=== PATIENT | female | born 1990 | race Caucasian/White ===

== ENCOUNTER 2021-10-23 08:59 | Emergency (ER) | payer OTHER ==
[~2021-10-23] VITALS: Ht 170.2 cm; Wt 136.9 kg
[2021-10-23 09:33] LABS: BASOPHILS % (AUTO) 0.5 % (0-1); EOSINOPHILS % (AUTO) 0.4 % (0-6); HEMATOCRIT 38.4 % (35.0-45.0); HEMOGLOBIN 12.8 g/dl (12.0-16.0); LYMPHOCYTES # (AUTO) 1.4 X10'3 (1.1-4.8); LYMPHOCYTES % (AUTO) 17.5 % (21-51); MEAN CORPUSCULAR HEMOGLOBIN 29.2 PG (27.0-31.0); MEAN CORPUSCULAR HGB CONC 33.3 g/dL (33.0-36.5); MEAN CORPUSCULAR VOLUME 87.7 FL (78-98); MEAN PLATELET VOLUME 7.9 FL (7.4-10.4); MONOCYTES # (AUTO) 0.5 X10'3 (0-0.9); MONOCYTES % (AUTO) 5.6 % (2-12); NEUTROPHILS # (AUTO) 6.1 X10'3 (1.8-7.7); PLATELET COUNT 287 X10'3 (140-440); RED BLOOD COUNT 4.38 X10'6 (4.20-5.60); RED CELL DISTRIBUTION WIDTH 12.9 % (11.5-14.5)
[2021-10-23 09:48] LABS: CHLORIDE 106 MMOL/L (99-107); GLUCOSE 111 MG/DL (70-104); POTASSIUM 3.5 MMOL/L (3.5-5.1); SODIUM 143 MMOL/L (135-145); TOTAL CARBON DIOXIDE 26.3 MMOL/L (24-32)
[2021-10-23 09:49] LABS: ALANINE AMINOTRANSFERASE 22 U/L (12-78); ALBUMIN 4.2 G/DL (3.4-5.0); ALBUMIN/GLOBULIN RATIO 1.2 (1.1-1.5); ALKALINE PHOSPHATASE 65 IU/L (46-116); ANION GAP 11 (8-16); ASPARTATE AMINO TRANSFERASE 14 U/L (10-37); BILIRUBIN,TOTAL 0.8 MG/DL (0.1-1.0); BLOOD UREA NITROGEN 8 MG/DL (7-18); BUN/CREATININE RATIO 15.4 (6.6-38.0); CALCIUM 8.6 MG/DL (8.5-10.1); CREATININE 0.52 MG/DL (0.40-0.90); TOTAL PROTEIN 7.7 G/DL (6.4-8.2); eGFR > 90 ML/MIN
[2021-10-23 09:57] LABS: ETHANOL < 0.010 GM/DL (0.0-0.010)
[2021-10-23] MEDS ORDERED: OLANZapine 5mg rapidly disint. tablet PO ONE (10:10)
[2021-10-23 10:48] LABS: URINE AMPHETAMINE SCREEN NEGATIVE (Neg); URINE BARBITUATE SCREEN NEGATIVE (Neg); URINE BENZODIAZEPINES SCREEN NEGATIVE (Neg); URINE CANNABINOID SCREEN NEGATIVE (Neg); URINE COCAINE SCREEN NEGATIVE (Neg); URINE METHADONE SCREEN NEGATIVE (Neg); URINE OPIATE SCREEN NEGATIVE (Neg); URINE PHENCYCLIDINE SCREEN NEGATIVE (Neg)
[2021-10-23 10:49] LABS: CLARITY,URINE CLOUDY (Clear); COLOR,URINE YELLOW (Yellow); GLUCOSE, URINE NEGATIVE (Neg); KETONES,URINE NEGATIVE (Neg); LEUKOCYTE ESTERASE ,URINE NEGATIVE (Neg); NITRITES, URINE NEGATIVE (Neg); OCCULT BLOOD,URINE NEGATIVE (Neg); PH,URINE 6.5 (4.8-8.0); PROTEIN,URINE NEGATIVE (Neg); UROBILINOGEN,URINE 0.2 E.U/dL (0.2-1.0)
[2021-10-23 10:53] LABS: URINE HCG NEGATIVE (NEG)
[2021-10-23 11:00] LABS: UA COLLECTION TYPE NON-SPECIFIED
[2021-10-23 11:01] LABS: MUCUS STRANDS MODERATE /LPF (Neg); SQUAMOUS EPITHELIAL CELL,UR MANY /LPF (FEW)
[2021-10-23 11:02] LABS: BACTERIA,URINE 2+ /HPF (Neg); RBC,URINE 0-2 /HPF (0-2); WBC,URINE 0-4 /HPF (0-4)
[2021-10-23] MEDS ORDERED: LORazepam 1 MG tablet PO ONE (11:50)
--- NOTE | 2021-10-23 12:00 | NUR ---
Received patient to bed 24. accompanied by father. AAOx3. No acute distress at this time. Calm, cooperative. Denies SI/HI at this time. States that she was at home and started to feel anxious and depresse. "I started to freak out a little bit". States that she was saying "The devil had my soul". The patient states that she was admitted inpatient at [facility] for 10 days, and was released five days ago where she sees Dr. Gonzales. She was perscribed Aristada 883mg IM and Trazadone 50mg for sleep. The patient states that her meds are not working and she needs something else. Will continue to monitor and assist as needed.
--- NOTE | 2021-10-23 14:00 | NUR ---
Resting in bed. Voiced no complaints at this time. Flat affect. Able to make needs known. Will continue to observe and redirect as needed.
[2021-10-23] MEDS ORDERED: TRAZ-251 PO (15:30)
--- NOTE | 2021-10-23 16:00 | NUR ---
Talking on the phone with mom. No negative behaviors observed. Will continue to monitor and assist as needed.
[2021-10-23] MEDS ORDERED: ARIP882S2 IM (17:49)
--- NOTE | 2021-10-23 19:39 | NUR ---
PATIENT RECEIVED ON THE UNIT IN NO OBVIOUS DISTRESS. NO PHYSICAL COMPLAINT MADE. PATIENT IS BREATHING SPONTANOUSLY ON ROOM AIR. PATIENT DENIES HAVING ANY SUICIDAL/HOMICIDAL IDEATION OR HALLUCINATION NOTED AT THIS TIME.
[2021-10-23] MEDS ORDERED: traZODone 50mg tablet PO SCH (21:00)
--- NOTE | 2021-10-24 05:51 | NUR ---
Patient slept through out the night. No obvious distress noted. observation ongoing.
--- NOTE | 2021-10-24 06:30 | NUR ---
PT. CARE ASSUMED FROM SHANIA STORM. PT. AWAKE ON THE UNIT HAS BEEN UP AT NURSES STATION WITH SEVERAL REQUEST. PT. PROVIDED WITH COLORING MATERIALS AND CUP OF COFFEE REQUESTED. PT. PRESENTS CALM AND COOPERATIVE WITH STAFF. STAFF WILL CONTINUE TO MONITOR FOR SAFETY.
[2021-10-24] MEDS ORDERED: LORazepam 1 MG tablet PO ONE (09:30)
--- NOTE | 2021-10-24 10:58 | NUR ---
PT. VISIBLE ON THE UNIT. PT. REQUESTED TO USE TELEPHONE AT THIS TIME.
--- NOTE | 2021-10-24 12:13 | NUR ---
FATHER AT BEDSIDE VISITING.
--- NOTE | 2021-10-24 13:16 | NUR ---
NURSE TO NURSE WITH JAUN STORM FROM [facility]. JAUN WILL PRESENT PATIENT TO DOCTOR FOR POSSIBLE ADMISSION, WILL NOTIFY [facility] IF ACCEPTED.
--- NOTE | 2021-10-24 14:48 | NUR ---
PT. ACCE[facility] AT [facility] WITH A SCHEDULED PICK-UP TIME OF [id number].
--- NOTE | 2021-10-24 17:06 | NUR ---
PT. REMAINS CALM AND COOPERATIVE ON THE UNIT. MOM AT BEDSIDE AT THIS TIME. STAFF WILL CONTINUE TO MONITOR FOR SAFETY.
--- NOTE | 2021-10-24 19:13 | NUR ---
PATIENT RECEIVED ON THE UNIT IN NO OBVIOUS DISTRESS. NO PHYSICAL COMPLAINT MADE. PATIENT IS BREATHING SPONTANOUSLY ON ROOM AIR. SHE DENIES HAVING ANY SUICIDAL/HOMICIDAL IDEATION AT THIS TIME.
[2021-10-24 20:03] VITALS: BP 120/80
== END 2021-10-24 20:14 ==
LOC: ER 09:01
DX: R45.851 Suicidal ideations (principal); Z20.822 Contact with and (suspected) exposure to COVID-19
CPT/HCPCS: 36415; 80053; 80305; 80320; 81001; 81025; 84443; 85025; 87635; 99285; C9803

== ENCOUNTER 2021-11-26 11:07 | Emergency (ER) | payer MEDICAID ==
[~2021-11-26] VITALS: Ht 170.2 cm; Wt 60.9 kg
[~2021-11-26 11:07] MED LIST: ARIP882S2 IM; TRAZ-251 PO
[2021-11-26 11:46] LABS: URINE HCG NEGATIVE (NEG)
[2021-11-26 11:49] LABS: CLARITY,URINE CLEAR (Clear); COLOR,URINE YELLOW (Yellow); GLUCOSE, URINE NEGATIVE (Neg); KETONES,URINE NEGATIVE (Neg); LEUKOCYTE ESTERASE ,URINE NEGATIVE (Neg); NITRITES, URINE NEGATIVE (Neg); OCCULT BLOOD,URINE LARGE (Neg); PROTEIN,URINE NEGATIVE (Neg); UROBILINOGEN,URINE 0.2 E.U/dL (0.2-1.0)
[2021-11-26 11:51] LABS: UA COLLECTION TYPE CLN CATCH MIDSTREAM; URINE AMPHETAMINE SCREEN NEGATIVE (Neg); URINE BARBITUATE SCREEN NEGATIVE (Neg); URINE BENZODIAZEPINES SCREEN NEGATIVE (Neg); URINE CANNABINOID SCREEN NEGATIVE (Neg); URINE COCAINE SCREEN NEGATIVE (Neg); URINE METHADONE SCREEN NEGATIVE (Neg); URINE OPIATE SCREEN NEGATIVE (Neg); URINE PHENCYCLIDINE SCREEN NEGATIVE (Neg)
[2021-11-26 11:52] LABS: BASOPHILS # (AUTO) 0.1 X10'3 (0-0.2); BASOPHILS % (AUTO) 0.7 % (0-1); EOSINOPHILS % (AUTO) 0.4 % (0-6); HEMATOCRIT 37.5 % (35.0-45.0); HEMOGLOBIN 12.5 g/dl (12.0-16.0); LYMPHOCYTES # (AUTO) 0.8 X10'3 (1.1-4.8); MEAN CORPUSCULAR HEMOGLOBIN 29.3 PG (27.0-31.0); MEAN CORPUSCULAR HGB CONC 33.3 g/dL (33.0-36.5); MEAN CORPUSCULAR VOLUME 88.1 FL (78-98); MEAN PLATELET VOLUME 8.1 FL (7.4-10.4); MONOCYTES # (AUTO) 0.5 X10'3 (0-0.9); MONOCYTES % (AUTO) 6.4 % (2-12); NEUTROPHILS # (AUTO) 5.8 X10'3 (1.8-7.7); NEUTROPHILS % (AUTO) 81.5 % (42-75); PLATELET COUNT 240 X10'3 (140-440); RED BLOOD COUNT 4.26 X10'6 (4.20-5.60); RED CELL DISTRIBUTION WIDTH 12.9 % (11.5-14.5); WHITE BLOOD COUNT 7.1 X10'3 (4.5-11.0)
[2021-11-26 11:54] VITALS: BP 109/82
[2021-11-26 11:54] LABS: MUCUS STRANDS MANY /LPF (Neg); SQUAMOUS EPITHELIAL CELL,UR MANY /LPF (FEW)
[2021-11-26 11:55] LABS: HYALINE CASTS 0-3 /LPF (NEGATIVE)
[2021-11-26 11:56] LABS: BACTERIA,URINE FEW /HPF (Neg); WBC,URINE 0-4 /HPF (0-4)
[2021-11-26 12:05] LABS: ANION GAP 11 (8-16); BILIRUBIN,TOTAL 0.6 MG/DL (0.1-1.0); BLOOD UREA NITROGEN 9 MG/DL (7-18); BUN/CREATININE RATIO 12.9 (6.6-38.0); CALCIUM 8.6 MG/DL (8.5-10.1); CHLORIDE 103 MMOL/L (99-107); GLUCOSE 120 MG/DL (70-104); POTASSIUM 3.4 MMOL/L (3.5-5.1); SODIUM 140 MMOL/L (135-145); TOTAL CARBON DIOXIDE 25.7 MMOL/L (24-32); eGFR > 90 ML/MIN
[2021-11-26 12:06] LABS: ALANINE AMINOTRANSFERASE 13 U/L (12-78); ALBUMIN 4.4 G/DL (3.4-5.0); ALBUMIN/GLOBULIN RATIO 1.5 (1.1-1.5); ALKALINE PHOSPHATASE 63 IU/L (46-116); ASPARTATE AMINO TRANSFERASE 21 U/L (10-37); TOTAL PROTEIN 7.4 G/DL (6.4-8.2)
--- NOTE | 2021-11-26 12:15 | NUR ---
Patient asks when she can get medication for anxiety. Patient told ER Provider needs to assess her first.
[2021-11-26 12:17] LABS: ETHANOL < 0.010 GM/DL (0.0-0.010)
[2021-11-26] MEDS ORDERED: QUET25TA PO ×2 (12:25→16:46)
[2021-11-26] MEDS ORDERED: PRAZ5CAP PO (12:25)
[2021-11-26] MEDS ORDERED: RISP0.5T74 PO (12:25)
--- NOTE | 2021-11-26 12:30 | NUR ---
Patient resting quietly in room; sitting on bed.
--- NOTE | 2021-11-26 12:45 | NUR ---
Patient went to restroom and did not return to room; restrooms empty; security notified; [employer] notified.
--- NOTE | 2021-11-26 12:48 | NUR ---
PT NOTED TO NOT BE IN HER ROOM AFTER VISITING THE RESTROOM. PT'S BELONGS REMAIN ON A CART OUTSIDE OF RM14. ALL BATHROOMS CHECK, PT NOT FOUND. SARAH CALLED AND AND [employer] OFFICER CARYN CALLED TO NOTIFY HE WILL BEE LOOKING FOR PT.
--- NOTE | 2021-11-26 13:08 | NUR ---
Called patient's mother Sujata to let her know patient left ED; Sujata will call patient's sister toward whom patient has HI.
[2021-11-26] MEDS ORDERED: ARIP882S2 IM (16:09)
[2021-11-26] MEDS ORDERED: PRAZ2CAP2 PO (16:46)
[2021-11-26] MEDS ORDERED: TRAZ-256 PO (16:46)
[2021-11-26] MEDS ORDERED: RISP2TAB85 PO (16:46)
== END 2021-11-26 12:48 | disposition left against medical advice (07) ==
LOC: ER 11:08
DX: R45.850 Homicidal ideations (principal); Z20.822 Contact with and (suspected) exposure to COVID-19; Z53.21 Procedure and treatment not carried out due to patient leaving prior to being seen by health care provider
CPT/HCPCS: 36415; 80053; 80305; 80320; 81001; 81025; 84443; 85025; 87635; C9803

== ENCOUNTER 2021-11-26 14:46 | Emergency (ER) | payer MEDICAID ==
[~2021-11-26] VITALS: Ht 170.2 cm; Wt 60.9 kg
[~2021-11-26 14:46] MED LIST changes: +PRAZ5CAP PO; +QUET25TA PO; +RISP0.5T74 PO
[2021-11-26 15:51] LABS: BASOPHILS % (AUTO) 0.6 % (0-1); EOSINOPHILS % (AUTO) 0.5 % (0-6); HEMATOCRIT 37.4 % (35.0-45.0); HEMOGLOBIN 12.5 g/dl (12.0-16.0); LYMPHOCYTES % (AUTO) 13.9 % (21-51); MEAN CORPUSCULAR HEMOGLOBIN 29.4 PG (27.0-31.0); MEAN CORPUSCULAR HGB CONC 33.4 g/dL (33.0-36.5); MEAN CORPUSCULAR VOLUME 88.3 FL (78-98); MEAN PLATELET VOLUME 8.2 FL (7.4-10.4); MONOCYTES # (AUTO) 0.4 X10'3 (0-0.9); MONOCYTES % (AUTO) 6.4 % (2-12); NEUTROPHILS # (AUTO) 5.5 X10'3 (1.8-7.7); NEUTROPHILS % (AUTO) 78.6 % (42-75); PLATELET COUNT 249 X10'3 (140-440); RED BLOOD COUNT 4.23 X10'6 (4.20-5.60)
--- NOTE | 2021-11-26 15:58 | NUR ---
Per [facility], patient received her injection of Aristada 882/3 mg today. She is getting this medication Q 2 months.
[2021-11-26 15:59] LABS: ALANINE AMINOTRANSFERASE 11 U/L (12-78); ALBUMIN 4.5 G/DL (3.4-5.0); ALBUMIN/GLOBULIN RATIO 1.5 (1.1-1.5); ALKALINE PHOSPHATASE 65 IU/L (46-116); ANION GAP 5 (8-16); ASPARTATE AMINO TRANSFERASE 10 U/L (10-37); BILIRUBIN,TOTAL 0.7 MG/DL (0.1-1.0); BLOOD UREA NITROGEN 8 MG/DL (7-18); BUN/CREATININE RATIO 10.7 (6.6-38.0); CALCIUM 8.8 MG/DL (8.5-10.1); CHLORIDE 103 MMOL/L (99-107); CREATININE 0.75 MG/DL (0.40-0.90); ETHANOL < 0.010 GM/DL (0.0-0.010); GLUCOSE 102 MG/DL (70-104); POTASSIUM 3.8 MMOL/L (3.5-5.1); SODIUM 135 MMOL/L (135-145); TOTAL CARBON DIOXIDE 27.5 MMOL/L (24-32); TOTAL PROTEIN 7.5 G/DL (6.4-8.2); eGFR 90 ML/MIN
[2021-11-26] MEDS ORDERED: ARIP882S2 IM (16:09)
[2021-11-26] MEDS ORDERED: nicotine 14mg patch - 24hr TD ONE (16:20)
--- NOTE | 2021-11-26 16:30 | NUR ---
RECEIVED VO FROM Nan PINA NP FOR ATARAX 50MG PO Q6 HOURS PRN ANXIETY AGGITATION AND NICOTINE PATCH 14MG X 1 PT REQUESTING.
[2021-11-26] MEDS: hydrOXYzine 25 MG tablet PO PRN (16:32)
[2021-11-26 16:46] LABS: CLARITY,URINE SLIGHTLY CLOUDY (Clear); GLUCOSE, URINE NEGATIVE (Neg); KETONES,URINE NEGATIVE (Neg); LEUKOCYTE ESTERASE ,URINE NEGATIVE (Neg); NITRITES, URINE NEGATIVE (Neg); OCCULT BLOOD,URINE LARGE (Neg); PROTEIN,URINE NEGATIVE (Neg); UROBILINOGEN,URINE 0.2 E.U/dL (0.2-1.0)
[2021-11-26] MEDS ORDERED: QUET25TA PO (16:46)
[2021-11-26] MEDS ORDERED: RISP2TAB85 PO (16:46)
[2021-11-26] MEDS ORDERED: TRAZ-256 PO (16:46)
[2021-11-26] MEDS ORDERED: PRAZ2CAP2 PO (16:46)
[2021-11-26 16:54] LABS: UA COLLECTION TYPE CLN CATCH MIDSTREAM
[2021-11-26 16:55] LABS: BACTERIA,URINE FEW /HPF (Neg); WBC,URINE 0-4 /HPF (0-4)
[2021-11-26 16:56] LABS: COLOR,URINE STRAW (Yellow); MUCUS STRANDS FEW /LPF (Neg); SQUAMOUS EPITHELIAL CELL,UR FEW /LPF (FEW)
[2021-11-26 16:57] LABS: URINE AMPHETAMINE SCREEN NEGATIVE (Neg); URINE BARBITUATE SCREEN NEGATIVE (Neg); URINE BENZODIAZEPINES SCREEN NEGATIVE (Neg); URINE CANNABINOID SCREEN NEGATIVE (Neg); URINE COCAINE SCREEN NEGATIVE (Neg); URINE METHADONE SCREEN NEGATIVE (Neg); URINE OPIATE SCREEN NEGATIVE (Neg); URINE PHENCYCLIDINE SCREEN NEGATIVE (Neg)
--- NOTE | 2021-11-26 17:22 | NUR ---
PTS MOTHER COLLECTED BELONGINGS/CLOTHING AND IS TAKING THEM HOME.
--- NOTE | 2021-11-26 18:38 | NUR ---
Packet sent to [facility]
--- NOTE | 2021-11-26 20:51 | NUR ---
The patient ate 100% of her dinner. She has been resting on her bed. Attempted one to one nursing assessment but the patient appeared very tired and gave minimal verbal responses. Her affect was fairly flat. She denied having pain. She took her HS medications with no prolems.
[2021-11-26] MEDS ORDERED: QUEtiapine 25mg tablet PO SCH (21:00)
[2021-11-26] MEDS ORDERED: prazosin 1mg capsule PO SCH (21:00)
[2021-11-26] MEDS ORDERED: traZODone 50mg tablet PO SCH (21:00)
--- NOTE | 2021-11-26 23:19 | NUR ---
The patient appears to be sleeping
--- NOTE | 2021-11-27 00:41 | NUR ---
The patient appears to be sleeping
--- NOTE | 2021-11-27 02:03 | NUR ---
The patient appears to be sleeping
--- NOTE | 2021-11-27 03:11 | NUR ---
The patient appears to be sleeping
--- NOTE | 2021-11-27 05:06 | NUR ---
The patient appeared to have slept well throughout the night
--- NOTE | 2021-11-27 06:36 | NUR ---
Assumed care. The patient is awake in bed. No s/sx acute distress.
[2021-11-27] MEDS: hydrOXYzine 25 MG tablet PO PRN ×2 (06:42→14:42)
[2021-11-27] MEDS ORDERED: risperiDONE 2mg tablet PO SCH (08:00)
--- NOTE | 2021-11-27 08:48 | NUR ---
PRN Atarax effective for anxiety. Patient eats breakfast, resting quietly in bed at this time.
[2021-11-27] MEDS ORDERED: nicotine 14mg patch - 24hr TD ONE (09:45)
--- NOTE | 2021-11-27 13:17 | NUR ---
Pt is resting.
--- NOTE | 2021-11-27 13:30 | NUR ---
Pt is up to brush her teeth.
[2021-11-27 14:06] LABS: URINE HCG NEGATIVE (NEG)
--- NOTE | 2021-11-27 14:45 | NUR ---
patient was accepted to [facility] at 13:30 by KATE Scales, patient requests PRN Atarax for anxiety
--- NOTE | 2021-11-27 17:19 | NUR ---
Patient is awake in bed visiting with her mom at the bedside
[2021-11-27 17:29] VITALS: BP 115/80
[2021-11-28] MEDS ORDERED: nicotine 14mg patch - 24hr TD SCH (08:00)
[2022-01-26] MEDS ORDERED: TYPE IN GENERIC & BRAND NAME OF PATIENT MED STRENGTH & FORM IM SCH (17:10)
== END 2021-11-27 18:28 ==
LOC: ER 14:48
DX: F22 Delusional disorders (principal); Z20.822 Contact with and (suspected) exposure to COVID-19; F20.9 Schizophrenia, unspecified; F17.200 Nicotine dependence, unspecified, uncomplicated; Z79.899 Other long term (current) drug therapy
CPT/HCPCS: 36415; 80053; 80305; 80320; 81001; 81025; 85025; 87635; 99285; C9803; Q0177